=== PATIENT | male | born 1965 ===

== ENCOUNTER 2024-04-12 19:31 | Emergency (ER) | payer BC ==
[2024-04-12] MEDS: Diphtheria,Pertussis(Acell),Tetanus Vaccine 0.5 ML Syringe IM ONE (20:08)
[2024-04-12] MEDS: Bacitracin Oint 1 GM U/D Packet TOP ONE (20:08)
[2024-04-12] MEDS: Lidocaine 1% 30 ML SDV INJECT ONE (20:21)
== END 2024-04-12 20:26 | disposition home or self-care (01) ==
LOC: DL.ED 19:31
DX: S61.412A Laceration without foreign body of left hand, initial encounter (principal); W45.8XXA Other foreign body or object entering through skin, initial encounter; Z23 Encounter for immunization
CPT/HCPCS: 12001; 90471; 90715; 99282; A9270; J3490